=== PATIENT | female | born 1945 | race Caucasian/White ===

== ENCOUNTER 2019-02-18 07:25 | Day surgery (SDC) | payer OTHER ==
[~2019-02-18] VITALS: Ht 154.9 cm; Wt 81.7 kg
[~2019-02-18 07:25] MED LIST: ASA81BEC PO; BYSTOLIC 5 MG5 M1 PO; HYTRIN 1 MG CAP1 MG PO; IMDUR 30 MG TAB30 M1 PO; PANTOPRAZOLE SO40 M1 PO; PROAIR HFA8.5 GM INH; VALSARTAN320 MG PO; VITAMIN D32000 UNI2 PO; XARELTO20 MG PO; ZETIA10 MG PO; ZYRTEC10 M4 PO
[2019-02-18 08:29] VITALS: BP 128/57
--- NOTE | 2019-02-22 06:22 | O ---
[facility] [place] [address] OPERATIVE REPORT Name: ROWENA CEVALLOS Room #: DEP [facility]#: [id number] Admission: 02/18/19 Attend Phys: Justo Cook MD Discharge: 02/18/19 Date of : 49 Report #: [id number] THIS REPORT FOR: //name// CC: Dr. Taylor MINOR Physician staff Justo Cook DATE OF SERVICE: 02/18/2019 PREOPERATIVE DIAGNOSIS: Right orbital mass. POSTOPERATIVE DIAGNOSIS: Right orbital mass. PROCEDURE: Right transconjunctival orbitotomy. SURGEON: Justo Cook M.D. ANESTHESIA: General. COMPLICATIONS: None. INDICATIONS FOR SURGERY: This pleasant 73-year-old woman has a cystic lesion in her right inferior orbit that is not pathognomonic for any specific clinical entity. The lesion is thought to most likely be benign, but a mucin secreting carcinoma is in the differential diagnosis. She presents today for excision of the lesion transconjunctivally or at least removal of it as much as possible in order to determine its histologic nature. Informed consent was obtained to include but not limited to the potential risk for loss of vision, bleeding, infection, and the potential need for further treatment or surgery. DESCRIPTION OF PROCEDURE: The patient was taken to the operating room, where general anesthesia was administered. The right lateral and inferior orbit was then anesthetized with Xylocaine with epinephrine mixed with Marcaine and Wydase. Care was taken to ensure that the cyst was not ruptured during this maneuver or any time during the procedure. She was subsequently prepped and draped in the usual sterile fashion. The right lateral canthus was then clamped with a Latyon clamp. A sharp canthotomy and cantholysis was then performed, staying away from the lesion. The conjunctiva was then delicately lifted up off the lesion to determine a tissue plane that could be used to separate the thin conjunctiva from the underlying mass. This dissection plane was then undertaken across the width of the lid, which allowed the lesion to separate and leave conjunctiva with the [facility] [address] [place] [address] OPERATIVE REPORT Name: RWOENA CEVALLOS Room #: DEP [facility].#: [id number] Admission: 02/18/19 Attend Phys: Justo Cook MD Discharge: 02/18/19 Date of : 49 Report #: [id number] globe. The dissection was then carried down on to the lower lid retractors, which were also able to be from the lesion without rupturing it. The dissection was then carried around inferolaterally because the lesion was elevated with a cotton-tipped applicator and from the underlying tissue and the deeper orbit. The exact location of the presumed secretory element that contributed to the cysts was never specifically identified during the dissection. The lesion was able to be removed en-bloc without rupturing it. It was passed off the field for permanent section pathology. Minimal use of pinpoint monopolar cautery was then undertaken in order to dry the field. The lower lid was then redraped and secured. A tarsal strip was prepared laterally, removing the lash bearing portion of the redundant lid margin and the redundant tarsal plate. Minimal shortening was undertaken. The lid was then reattached to the lateral orbital tubercle with 2 interrupted 5-0 Prolene sutures. The subcutaneous structures and the skin were then closed with interrupted 6-0 plain gut sutures. The wound was then cleaned and dressed with Maxitrol ointment. The patient subsequently transported to the recovery area having tolerated the procedure well with no anesthetic or operative complications being noted. <ELECTRONICALLY SIGNED> By: Justo Cook MD 02/22/19 0622 [id number] Justo Cook MD /nt
--- NOTE | 2019-02-22 16:06 | PATH ---
[facility] [address] [place] [address] PATHOLOGY RPT PROCEDURE Name: ROWENA CEVALLOS Room #: DEP [facility]..#: [id number] Admission: 02/18/19 Date of : 49 Discharge: 02/18/19 Report #: [id number] Path Case #: [id number] [facility] Accession Number: [id number] . 01 Material submitted: . lid - RIGHT LOWER LID CYST LESION. Modifiers: right, lower . 01 Clinical history: . Inferior orbital mass . 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 - Negative for malignancy. . (IUV:mml; 02/22/2019) QLM 02/22/2019 1436 Local . 02 Electronically signed: . Shahnaz Singh MD, Pathologist NPI- [id number] . 01 Gross description: . The specimen is received in formalin, labeled "Rowena Cevallos, right lower lid cyst lesion" and consists of a fluctuant cystic pink brewer segment of tissue measuring 2.2 x 0.7 x 0.5 cm. Sectioning reveals the cyst contains clear viscous fluid and the specimen is entirely submitted in A1. (SDY; 02/19/2019) SYU/SYU 02/19/2019 1216 Local . 02 Pathologist provided ICD-10: D23.112 . 02 CPT . 162515 Specimen Comment: A courtesy copy of this report has been sent to [phone] Specimen Comment: Report sent to Performed at: [address], [place] [id number] MD Luis Rodriguez MD Phone: [phone] Performed at: [address] [place] [address] [id number] MD Shahnaz Singh MD Phone: [phone]
== END 2019-02-18 11:45 | disposition home or self-care (01) ==
LOC: OR 07:25 → TBA 07:27 → OR 11:45
DX: D23.112 Other benign neoplasm of skin of right lower eyelid, including canthus (principal); I10 Essential (primary) hypertension; E78.5 Hyperlipidemia, unspecified; I48.91 Unspecified atrial fibrillation; G47.30 Sleep apnea, unspecified; J43.9 Emphysema, unspecified; K21.9 Gastro-esophageal reflux disease without esophagitis; Z98.890 Other specified postprocedural states; Z90.710 Acquired absence of both cervix and uterus; Z90.49 Acquired absence of other specified parts of digestive tract; Z98.41 Cataract extraction status, right eye; Z98.42 Cataract extraction status, left eye; Z79.899 Other long term (current) drug therapy; Z88.8 Allergy status to other drugs, medicaments and biological substances; Z79.82 Long term (current) use of aspirin
CPT/HCPCS: 50010; 50101; 50386; 50398; 51636; 62110; 62900; 64037; 70005